=== PATIENT | female | born 1995 ===

== ENCOUNTER 2025-04-06 08:01 | Outpatient (CLI) | payer MEDICAID ==
[2025-04-06] VITALS (21 sets, daily range): BP systolic 117–143; BP diastolic 65–94; PULSE 69–96
== END 2025-04-06 23:59 | disposition home or self-care (01) ==
LOC: CARD DIAG 08:01
PROVIDERS: ATTEND Physician Assistant
DX: I47.10 Supraventricular tachycardia, unspecified (principal); I95.9 Hypotension, unspecified
CPT/HCPCS: 93660